=== PATIENT | female | born 1995 | race Caucasian/White ===

== ENCOUNTER → 2019-12-06 | Day surgery (SDC) | payer BC ==
[2019-11-30 11:59] LABS: BASOPHILS # (AUTO) 0.1 X10'3 (0-0.2); BASOPHILS % (AUTO) 1.1 % (0-1); EOSINOPHILS # (AUTO) 0.3 X10'3 (0-0.9); EOSINOPHILS % (AUTO) 3.8 % (0-6); LYMPHOCYTES % (AUTO) 29.2 % (21-51); MEAN CORPUSCULAR HGB CONC 32.1 g/dL (33.0-36.5); MEAN CORPUSCULAR VOLUME 74.7 FL (78-98); MEAN PLATELET VOLUME 10.7 FL (7.4-10.4); MONOCYTES # (AUTO) 0.4 X10'3 (0-0.9); MONOCYTES % (AUTO) 6.3 % (2-12); NEUTROPHILS # (AUTO) 4.1 X10'3 (1.8-7.7); NEUTROPHILS % (AUTO) 59.6 % (42-75); PRE OP HEMOGLOBIN 13.8 g/dL (12.0-16.0); PRE OP PLATELET COUNT 212 X10'3 (140-440); RED BLOOD COUNT 5.76 X10'6 (4.20-5.60); RED CELL DISTRIBUTION WIDTH 14.2 % (11.5-14.5)
[2019-11-30 12:08] LABS: BLOOD UREA NITROGEN 8 MG/DL (7-18); CHLORIDE 106 MMOL/L (99-107); CREATININE 0.71 MG/DL (0.40-0.90); PRE OP ANION GAP 9 (8-16); PRE OP GLUCOSE 110 MG/DL (70-104); PRE OP SODIUM 144 MMOL/L (135-145); TOTAL CARBON DIOXIDE 28.8 MMOL/L (24-32)
[2019-11-30 12:09] LABS: ALBUMIN 3.9 G/DL (3.4-5.0); ALKALINE PHOSPHATASE 52 IU/L (46-116); BUN/CREATININE RATIO 11.3 (6.6-38.0); CALCIUM 9.7 MG/DL (8.5-10.1); PRE OP ALT 38 U/L (30-65); PRE OP AST 18 U/L (10-37); PRE OP BILIRUB, TOTAL 0.3 MG/DL (0.0-1.0); TOTAL PROTEIN 7.9 G/DL (6.4-8.2); eGFR > 90 ML/MIN
[2019-11-30 12:28] LABS: HCG SERUM QL NEGATIVE
[2019-11-30 13:25] LABS: LARGE PLATELETS FEW; PLATELET ESTIMATE NORMAL
[2019-12-06] VITALS (7 sets, daily range): BP systolic 110–141; BP diastolic 62–79
[~2019-12-06] VITALS: Ht 157.5 cm; Wt 84.9 kg
[~2019-12-06] MED LIST: BUPIVAcaine/PF 2.5 mg/ml (0.25%) 30ml vial ONE; LIDOcaine 2% (20mg/ml) 5ml vial ONE; SUMA25TA35 PO; acetaminophen 1,000mg/100ml IV 100 ML IV PRN; ceFOXitin sod/dextrose 2g/50ml 50 ML IV ONE; cefazolin 2gm/NS 100ml IVPB IV ONE; dexamethasone sod phosphate 4mg/ml inj. ONE; epiNEPHrine 1 mg/ml inj ONE; famotidine 20mg tablet PO ONE; fentaNYL/PF 50MCG/1 ML 2ML syringe ONE; glycopyrrolate 0.2mg/ml inj ONE; meperidine/PF 25mg/ml syringe IV PRN; midazolam 2 mg/2 ml injection ONE; morphine 10mg/ml inj. ONE; morphine 2 MG/ML inj. syringe IV PRN; morphine 4 MG/ML inj SYRINge IV PRN; neostigmine methylsulfate 1 MG/ML 10ml vial ONE; ondansetron/PF 4mg/2ml inj IV PRN; ondansetron/PF 4mg/2ml inj ONE; proCHLORperazine 10 MG/2 ml inj IV PRN; propofol inj 20 ML IV ONE; ringers solution, lacted 1,000 ML IV SCH; rocuronium 10mg/ml inj IV ONE; sevoflurane 250ml liquid IH ONE
--- NOTE | 2019-12-06 14:18 | NUR ---
Received from OR via , accompanied by Anesthesiologist DR FULLER and report given by Anesthesiolgist. AWAKENS TO VOICE. VITALS STABLE. DRESSING DI. ODALIS PAIN.
--- NOTE | 2019-12-06 15:18 | NUR ---
AWAKE AND ORIENTED. VITALS STABLE. DRESSING DI. ODALIS PAIN. HOME WITH HER SPOUSE AT THIS TIME.
== END | disposition home or self-care (01) ==
LOC: PAS 11:26
PROVIDERS: ATTEND Specialist
DX: Z30.2 Encounter for sterilization (principal); G43.909 Migraine, unspecified, not intractable, without status migrainosus; F32.9 Major depressive disorder, single episode, unspecified; Z98.890 Other specified postprocedural states; Z11.59 Encounter for screening for other viral diseases; Z79.899 Other long term (current) drug therapy
CPT/HCPCS: 36415; 58670; 80053; 82948; 84703; 85025; 86885; 86900; 86901; J0171; J0690; J0694; J1100; J2001; J2250; J2270; J2405; J2704; J2710; J3010; J3490; J7120; U0003; A4338; A4618; A7000